=== PATIENT | male | born 1955 ===

== ENCOUNTER 2019-08-24 22:37 | Emergency (ER) | payer MEDICAID ==
--- NOTE | 2019-08-24 22:32 | EDM.PDOC ---
ED HPI GENERAL MEDICAL PROBLEM - General Chief Complaint: General Stated Complaint: AMBULANCE Time Seen by Provider: 08/24/19 22:27 Source of Information: Reports: EMS, Family History Limitations: Reports: Other (unresponsive) - History of Present Illness INITIAL COMMENTS - FREE TEXT/NARRATIVE: EMS called by elderly family member for finding pt unresponsive, last time saw pt was about 8:45pm. pt did exhibit some decerebrate activity upon moving onto gurney. no response from sternal rub & narcan but did get gag reflex. - Related Data Allergies Allergy/AdvReac Type Severity Reaction Status Date / Time Unable to Assess Allergy Unverified 08/24/19 23:00 Home Meds: Home Meds . [Unable to Verify Home Med List] 08/24/19 [History] ED ROS GENERAL - Review of Systems Review Of Systems: Comprehensive ROS is negative, except as noted in HPI. ED EXAM, GENERAL - Physical Exam Exam: See Below Exam Limited By: No Limitations General Appearance: Other (unresponsive) Eye Exam: Bilateral Eye: PERRL (pinpoint bilateral) Throat/Mouth: No Airway Compromise, Other (snoring) Head: Atraumatic Neck: Normal Inspection Respiratory/Chest: No Accessory Muscle Use (snoring), Other Cardiovascular: Regular Rate, Rhythm GI/Abdominal: No Organomegaly Neurological: Unresponsive Skin Exam: Warm, Dry, Normal Color Lymphatic: No Adenopathy Course - Vital Signs Last Recorded V/S: Last Vital Signs Temp 35.7 C L 08/24/19 22:25 Pulse 100 08/24/19 22:25 Resp 16 08/24/19 22:25 BP 99/70 08/24/19 22:25 Pulse Ox 96 08/24/19 22:25 - Orders/Labs/Meds Orders: Active Orders 24 hr Category Date Time Status EKG Documentation Completion [RC] STAT Care 08/24/19 22:17 Active RT Aerosol Therapy [RC] ASDIRECTED Care 08/24/19 22:58 Ordered Urinary Catheter Assessment [RC] ASDIRECTED Care 08/24/19 22:30 Active Urinary Catheter Insertion [Insert Urinary Catheter] [ Care 08/24/19 22:30 Ordered OM.PC] Q24H Cervical Spine wo Cont [CT] Urgent Exams 08/24/19 22:25 Taken Chest [US] Urgent Exams 08/24/19 22:30 Ordered Head wo Cont [CT] Urgent Exams 08/24/19 22:25 Ordered Sodium Chloride 0.9% [Normal Saline] 1,000 ml Med 08/24/19 23:00 Ordered IV .BOLUS Medication Orders Sodium Chloride (Normal Saline) 1,000 mls @ 999 mls/hr IV .BOLUS ONE Stop: 08/25/19 00:00 Labs: Laboratory Tests 08/24/19 08/24/19 08/24/19 Range/Units 22:25 22:25 22:25 WBC 8.7 (5.0-10.0) 10^3/uL RBC 4.71 (4.6-6.2) 10^6/uL Hgb 14.2 (14.0-18.0) g/dL Hct 40.0 (40.0-54.0) % MCV 84.9 (80-100) fL MCH 30.1 (27.0-34.0) pg MCHC 35.5 H (33.0-35.0) g/dL Plt Count 284 (150-450) 10^3/uL Neut % (Auto) 71.6 (42.2-75.2) % Lymph % (Auto) 21.4 (20.5-50.1) % [place] % (Auto) 6.5 (2-8) % Eos % (Auto) 0.3 L (1.0-3.0) % Baso % (Auto) 0.2 (0.0-1.0) % Sodium 133 L (136-145) mmol/L Potassium 3.8 (3.5-5.1) mmol/L Chloride 97 L (98-107) mmol/L Carbon Dioxide 24 (21-32) mmol/L Anion Gap 15.8 H (7-13) mEq/L BUN 14 (7-18) mg/dL Creatinine 0.93 (0.70-1.30) mg/dL Est Cr Clr Drug Dosing 88.08 mL/min Estimated GFR (MDRD) > 60 BUN/Creatinine Ratio 15.1 (No establ ref range) Glucose 135 H (74-99) mg/dL Calcium 8.1 L (8.5-10.1) mg/dL Total Bilirubin 1.7 H (0.2-1.0) mg/dL AST 41 H (15-37) U/L ALT 56 (16-63) U/L Alkaline Phosphatase 64 (46-116) U/L Troponin I < 0.017 (0.000-0.056) ng/mL Total Protein 6.8 (6.4-8.2) g/dL Albumin 3.7 (3.4-5.0) g/dL Globulin 3.1 Albumin/Globulin Ratio 1.2 Urine Color (YELLOW) Urine Appearance (CLEAR) Urine pH (5.0-9.0) Ur Specific [place] (1.005-1.030) Urine Protein (NEGATIVE) Urine Glucose (UA) (NEGATIVE) Urine Ketones (NEGATIVE) Urine Occult Blood (NEGATIVE) Urine Nitrite (NEGATIVE) Urine Bilirubin (NEGATIVE) Urine Urobilinogen (0.2-1.0) mg/dL Ur Leukocyte Esterase (NEGATIVE) Urine RBC /HPF Urine WBC (0-5/HPF) /HPF Ur Epithelial Cells (NOT SEEN) /HPF Urine Bacteria (0-FEW/HPF) /HPF Urine Mucus (NOT SEEN) /LPF Salicylates < 2.8 L (2.8-20(Therapeutic)) mg/dL Urine Opiates Screen (NEGATIVE) Ur Oxycodone Screen (NEGATIVE) Urine Methadone Screen (NEGATIVE) Acetaminophen 373 H* (10-30 (Therapeutic)) ug/mL Ur Barbiturates Screen (NEGATIVE) U Tricyclic Antidepress (NEGATIVE) Ur Phencyclidine Scrn (NEGATIVE) Ur Amphetamine Screen (NEGATIVE) U Methamphetamines Scrn (NEGATIVE) Urine MDMA Screen (NEGATIVE) U Benzodiazepines Scrn (NEGATIVE) Urine Cocaine Screen (NEGATIVE) U Marijuana (THC) Screen (NEGATIVE) Ethyl Alcohol < 3 (0) mg/dL 08/24/19 08/24/19 Range/Units 22:32 22:32 WBC (5.0-10.0) 10^3/uL RBC (4.6-6.2) 10^6/uL Hgb (14.0-18.0) g/dL Hct (40.0-54.0) % MCV (80-100) fL MCH (27.0-34.0) pg MCHC (33.0-35.0) g/dL Plt Count (150-450) 10^3/uL Neut % (Auto) (42.2-75.2) % Lymph % (Auto) (20.5-50.1) % [place] % (Auto) (2-8) % Eos % (Auto) (1.0-3.0) % Baso % (Auto) (0.0-1.0) % Sodium (136-145) mmol/L Potassium (3.5-5.1) mmol/L Chloride (98-107) mmol/L Carbon Dioxide (21-32) mmol/L Anion Gap (7-13) mEq/L BUN (7-18) mg/dL Creatinine (0.70-1.30) mg/dL Est Cr Clr Drug Dosing mL/min Estimated GFR (MDRD) BUN/Creatinine Ratio (No establ ref range) Glucose (74-99) mg/dL Calcium (8.5-10.1) mg/dL Total Bilirubin (0.2-1.0) mg/dL AST (15-37) U/L ALT (16-63) U/L Alkaline Phosphatase (46-116) U/L Troponin I (0.000-0.056) ng/mL Total Protein (6.4-8.2) g/dL Albumin (3.4-5.0) g/dL Globulin Albumin/Globulin Ratio Urine Color Yellow (YELLOW) Urine Appearance Clear (CLEAR) Urine pH 6.0 (5.0-9.0) Ur Specific [place] >= 1.030 (1.005-1.030) Urine Protein Negative (NEGATIVE) Urine Glucose (UA) Negative (NEGATIVE) Urine Ketones Negative (NEGATIVE) Urine Occult Blood Trace-intact H (NEGATIVE) Urine Nitrite Negative (NEGATIVE) Urine Bilirubin Negative (NEGATIVE) Urine Urobilinogen 0.2 (0.2-1.0) mg/dL Ur Leukocyte Esterase Negative (NEGATIVE) Urine RBC 0-5 /HPF Urine WBC 0-5 (0-5/HPF) /HPF Ur Epithelial Cells Moderate H (NOT SEEN) /HPF Urine Bacteria Moderate H (0-FEW/HPF) /HPF Urine Mucus Many H (NOT SEEN) /LPF Salicylates (2.8-20(Therapeutic)) mg/dL Urine Opiates Screen Negative (NEGATIVE) Ur Oxycodone Screen Negative (NEGATIVE) Urine Methadone Screen Negative (NEGATIVE) Acetaminophen (10-30 (Therapeutic)) ug/mL Ur Barbiturates Screen Negative (NEGATIVE) U Tricyclic Antidepress Negative (NEGATIVE) Ur Phencyclidine Scrn Negative (NEGATIVE) Ur Amphetamine Screen Negative (NEGATIVE) U Methamphetamines Scrn Negative (NEGATIVE) Urine MDMA Screen Negative (NEGATIVE) U Benzodiazepines Scrn Negative (NEGATIVE) Urine Cocaine Screen Negative (NEGATIVE) U Marijuana (THC) Screen Negative (NEGATIVE) Ethyl Alcohol (0) mg/dL Meds: Medications Generic Name Dose Route Start Last Admin Trade Name Freq PRN Reason Stop Dose Admin Sodium Chloride 1,000 mls @ 999 mls/hr 08/24/19 23:00 Normal Saline IV 08/25/19 00:00 .BOLUS ONE Discontinued Medications Generic Name Dose Route Start Last Admin Trade Name Freq PRN Reason Stop Dose Admin Acetylcysteine 600 mg 08/24/19 22:58 Mucomyst 20% INH 08/24/19 22:59 ONETIME ONE - Re-Assessments/Exams Free Text/Narrative Re-Assessment/Exam: 08/24/19 23:[address] Aguiar @ [facility] who kindly accepted pt. Departure - Departure Time of Disposition: 23:03 Disposition: DC/Tfer to Acute Hospital 02 Condition: Fair Clinical Impression: Responsive to verbal stimulus Cerebral infarction Qualifiers: Cerebral infarction mechanism: unspecified mechanism Qualified Code(s): I63.9 - Cerebral infarction, unspecified Tylenol overdose Qualifiers: Encounter type: initial encounter Injury intent: accidental or unintentional Qualified Code(s): T39.1X1A - Poisoning by 4-Aminophenol derivatives, accidental (unintentional), initial encounter - Discharge Information Forms: Interfacility Transfer [facility] Sepsis Event Note - Evaluation Sepsis Screening Result: No Definite Risk - Focused Exam Vital Signs: Vital Signs Temp Pulse Resp BP Pulse Ox 08/24/19 22:25 35.7 C L 100 16 99/70 96 Date Exam was Performed: 08/24/19 Time Exam was Performed: 23:02 - My Orders Last 24 Hours: My Active Orders 08/24/19 22:17 EKG Documentation Completion [RC] STAT 08/24/19 22:25 Cervical Spine wo Cont [CT] Urgent Head wo Cont [CT] Urgent 08/24/19 22:30 Urinary Catheter Assessment [RC] ASDIRECTED Urinary Catheter Insertion [Insert Urinary Catheter] [OM.PC] Q24H Chest [US] Urgent 08/24/19 22:58 RT Aerosol Therapy [RC] ASDIRECTED 08/24/19 23:00 Sodium Chloride 0.9% [Normal Saline] 1,000 ml IV .BOLUS - Assessment/Plan Last 24 Hours: My Active Orders 08/24/19 22:17 EKG Documentation Completion [RC] STAT 08/24/19 22:25 Cervical Spine wo Cont [CT] Urgent Head wo Cont [CT] Urgent 08/24/19 22:30 Urinary Catheter Assessment [RC] ASDIRECTED Urinary Catheter Insertion [Insert Urinary Catheter] [OM.PC] Q24H Chest [US] Urgent 08/24/19 22:58 RT Aerosol Therapy [RC] ASDIRECTED 08/24/19 23:00 Sodium Chloride 0.9% [Normal Saline] 1,000 ml IV .BOLUS
[2019-08-24 22:56] LABS: ANION GAP 15.8 mEq/L (7-13); CHLORIDE,CL 97 mmol/L (98-107); SODIUM,NA 133 mmol/L (136-145)
[2019-08-24 22:57] LABS: ACETAMINOPHEN 373 ug/mL (10-30 (Therapeutic))
[2019-08-24] MEDS ORDERED: Acetylcysteine 20% 200 MG/ML 30 ML Nebulizer Soln SDV INH ONE (22:58)
[2019-08-24] MEDS ORDERED: Sodium Chloride 0.9% 1,000 ML IV ONE (23:00)
[2019-08-24] MEDS ORDERED: DEXTROSE 5% IV ONE ×2 (23:05)
[2019-08-24] MEDS ORDERED: ACETYLCYSTEINE IV ONE ×2 (23:05)
[2019-08-24] MEDS ORDERED: WATER IV ONE ×2 (23:05)
== END 2019-08-24 23:52 ==
LOC: DL.ED 22:37
DX: T39.1X1A Poisoning by 4-Aminophenol derivatives, accidental (unintentional), initial encounter (principal); I63.9 Cerebral infarction, unspecified
CPT/HCPCS: 36415; 51702; 70450; 71045; 72125; 80053; 80305; 80307; 81001; 84484; 85025; 93005; 96365; 99285; A9270; J0132; J7030; J7060

== ENCOUNTER 2022-04-04 21:27 | Emergency (ER) | payer MEDICARE, OTHER | END 2022-04-05 00:14 | disposition other institution (70) | LOC: DL.ED 21:27 | DX: F25.1 Schizoaffective disorder, depressive type (principal); F51.04 Psychophysiologic insomnia; F22 Delusional disorders; Z88.8 Allergy status to other drugs, medicaments and biological substances; Z79.899 Other long term (current) drug therapy | CPT/HCPCS: 99285 ==

== ENCOUNTER 2022-11-24 14:26 | Emergency (ER) | payer MEDICAID, MEDICARE, OTHER | END 2022-11-24 15:00 | disposition home or self-care (01) | LOC: DL.ED 14:26 | DX: Z13.9 Encounter for screening, unspecified (principal); Z88.8 Allergy status to other drugs, medicaments and biological substances; Z79.84 Long term (current) use of oral hypoglycemic drugs; Z79.899 Other long term (current) drug therapy | CPT/HCPCS: 99282; 99283 ==

== ENCOUNTER 2023-01-23 07:03 | Day surgery (SDC) | payer MEDICAID, MEDICARE, OTHER ==
[~2023-01-23 07:03] MED LIST: Dextrose 5%-0.45% NaCl 1,000 ML IV SCH; Sodium Chloride 0.9% 10 ML Syringe FLUSH PRN; Sodium Chloride 0.9% 10 ML Syringe FLUSH SCH
[2023-01-23] MEDS ORDERED: fentaNYL 100 MCG/2 ML SDV ONE (07:14)
[2023-01-23] MEDS ORDERED: Midazolam 1 MG/ML 2 ML SDV IV ONE ×3 (07:14→08:06)
[2023-01-23] MEDS ORDERED: Midazolam 1 MG/ML 2 ML SDV ONE (07:14)
[2023-01-23] MEDS ORDERED: fentaNYL 100 MCG/2 ML SDV IV ONE ×3 (07:14→08:05)
== END 2023-01-23 09:49 | disposition home or self-care (01) ==
LOC: DL.ENDO 07:03
PROVIDERS: ATTEND Internal Medicine Gastroenterology
DX: K25.9 Gastric ulcer, unspecified as acute or chronic, without hemorrhage or perforation (principal); K29.50 Unspecified chronic gastritis without bleeding; B96.81 Helicobacter pylori [H. pylori] as the cause of diseases classified elsewhere; K31.A11 Gastric intestinal metaplasia without dysplasia, involving the antrum; R63.4 Abnormal weight loss; R13.10 Dysphagia, unspecified; E66.09 Other obesity due to excess calories; E78.5 Hyperlipidemia, unspecified; N40.0 Benign prostatic hyperplasia without lower urinary tract symptoms; F99 Mental disorder, not otherwise specified; Z88.8 Allergy status to other drugs, medicaments and biological substances; Z68.26 Body mass index [BMI] 26.0-26.9, adult
CPT/HCPCS: 87077; J2250; J3010; J7042